=== PATIENT | female | born 1990 | race Caucasian/White ===

== ENCOUNTER 2019-06-17 17:39 | Inpatient (IN) | payer OTHER ==
[~2019-06-17] VITALS: Ht 170.2 cm; Wt 100.4 kg
[~2019-06-17 17:39] MED LIST: CALCIUM POLYCA625 MG PO; COLACE100 MG PO; DIPHENHYDRAMINE50 MG PO; FERROUS SULFAT325 M2 PO; HYDROXYZINE HYD25 MG PO; LITHIUM CARBON300 MG PO; MIRTAZAPINE15 M2 PO; OLANZAPINE10 MG PO; OLANZAPINE5 M2 PO; VENLAFAXINE HYD75 MG PO
[2019-06-17 17:46] VITALS: Ht 170.2 cm; Wt 100.4 kg
[2019-06-17 20:13] LABS: BASOPHIL % 0.4 % (0-2); PLATELET COUNT 196 x10^3mcL (130-400); RED CELL DISTRIBUTION WIDTH 16.7 % (11.5-14.5)
[2019-06-17 20:40] LABS: BILIRUBIN TOTAL 0.3 mg/dL (0.20-1.00); CALCIUM 7.6 mg/dL (8.5-10.1); CARBON DIOXIDE 23.3 mmol/L (21-32); CREATININE SERUM 1.4 mg/dL (0.6-1.0)
[2019-06-17 20:42] LABS: ALBUMIN 2.6 g/dL (3.4-5.0); POTASSIUM SERUM 6.9 mmol/L (3.5-5.1); TOTAL PROTEIN, SERUM 5.8 g/dL (6.4-8.2)
[2019-06-18 00:53] VITALS: BP 114/46
[2019-06-18 05:51] VITALS: BP 110/49
[2019-06-18 06:40] LABS: CALCIUM 7.3 mg/dL (8.5-10.1); CARBON DIOXIDE 24.3 mmol/L (21-32); CHLORIDE SERUM 109 mmol/L (98-107); CREATININE SERUM 0.9 mg/dL (0.6-1.0); GFR1 > 60 mL/min; GLUCOSE SERUM 82 mg/dL (74-106); POTASSIUM SERUM 4.1 mmol/L (3.5-5.1); SODIUM SERUM 142 mmol/L (136-145)
[2019-06-18 08:22] LABS: PLATELET COUNT 145 x10^3mcL (130-400); RED CELL DISTRIBUTION WIDTH 16.6 % (11.5-14.5)
[2019-06-18 08:23] LABS: BASOPHIL % 0.5 % (0-2)
[2019-06-18 08:31] LABS: AMPHETAMINE QUAL UR NONE DETECTED (See below)
[2019-06-18 09:35] VITALS: BP 117/63
[2019-06-18 11:14] VITALS: BP 117/63
[2019-06-18 12:46] VITALS: BP 133/85
== END 2019-06-18 13:10 | disposition other institution (70) | DRG 605 ==
LOC: ED 17:39 → DU 23:07
PROVIDERS: Emergency Medicine; ADMIT Internal Medicine
PROC: 0HQEXZZ Repair Left Lower Arm Skin, External Approach (ICD-10-PCS; principal; 2019-06-17)
DX: S51.812A Laceration without foreign body of left forearm, initial encounter (principal); N17.9 Acute kidney failure, unspecified; X78.8XXA Intentional self-harm by other sharp object, initial encounter; F41.9 Anxiety disorder, unspecified; F31.9 Bipolar disorder, unspecified; E87.5 Hyperkalemia; D64.9 Anemia, unspecified; Y93.89 Activity, other specified; Y92.143 Cell of prison as the place of occurrence of the external cause; Z68.30 Body mass index [BMI] 30.0-30.9, adult; Z23 Encounter for immunization; Y99.8 Other external cause status; Z79.899 Other long term (current) drug therapy
CPT/HCPCS: 36569; 82962; 90715; G0378; J0780; J1815; J1885; J2001; J2060; J2405; J3490; J7030; Q0163; Q9967